=== PATIENT | male | born 1960 | race Caucasian/White ===

== ENCOUNTER 2019-05-28 06:17 | Day surgery (SDC) | payer BC, SELFPAY ==
[2019-05-27 09:29] VITALS: BMI 30.5
[2019-05-28 06:35] VITALS: BP 134/91; PULSE 96; RESP 16; TEMP 36.6; O2SAT 97
[2019-05-28] MEDS: sodium chloride 0.9% 1,000 ML 30 ML (06:38)
--- NOTE | 2019-05-28 06:43 | ANES.PREANE2 ---
Pre-Anesthetic Assessment Pre-Anesthetic Assessment: Height/Weight: Height 1.7 m Weight 88.451 kg Temp Pulse Resp BP Pulse Ox 97.8 F 96 16 134/91 97 05/28/19 06:35 05/28/19 06:35 05/28/19 06:35 05/28/19 06:35 05/28/19 06:35 Preop Diagnosis: Screening colonoscopy Proposed Procedure: Operation Date: 05/28/19 07:00 Proposed Procedures p Colonoscopy 20118 Z12.11(Not Applicable) - Son Myrick MD Social: Social History: Tobacco (quit 30 years ago) and No alcohol Exam: Pre-Anes Outpt Exam: alert, oriented x 3, clear to auscultation bilaterally and regular rate & rhythm Airway: Submandibular: WNL Cervical ROM: WNL MP: 2 Dentition: Other (very poor) History/ROS: No significant history except as noted Pulmonary: Pulmonary: None reported CV/HEM: CV/HEM: HTN : : None reported Hepatic: Hepatic: None reported GI: GI: GERD (occ) Metabolic: Metabolic: None reported Musc/skel: Musc/skel: OA/DJD Neuropsych: Neuropsych: None reported Anesthetic Plan: ASA status: 2 Anesthesia: Anesthesia Evaluation and MAC Risk of > 500 ml blood loss (7ml/kg in children): No PFSH Anesthesia PFSH: Medical History Hypertension Family History Other Cancer Diabetes Hypertension Denies family history of Anesthesia complication Bleeding disorder Social History Smoking and tobacco status: former smoker Alcohol intake: never Data Anesthesia Cardiac Studies: No Data to Display
--- NOTE | 2019-05-28 06:43 | W.PM.OPSUD ---
Surgery/Procedure H&P Update DATE OF PROCEDURE: May 28, 2019 DATE H&P PERFORMED: 05/15/19 H&P UPDATE INFORMATION: I have reviewed H&P completed within last 30 days, I have examined patient prior to procedure and No changes to prior documentation PREOP DIAGNOSIS: Screening colonoscopy PRIMARY INDICATION FOR PROCEDURE: The same PLANNED PROCEDURE: Operation Date: 05/28/19 07:00 Proposed Procedures p Colonoscopy 00510 Z12.11(Not Applicable) - Son Myrick MD
--- NOTE | 2019-05-28 07:28 | SUR.OPER ---
RESOLUTION CLIPS PLACED IN THE ASCENDING COLON POLYP REMOVAL SITES.
--- NOTE | 2019-05-28 07:46 | SUR.OPER ---
RESOLUTION CLIP PLACEMENT AT THE RECTAL POLYP SITE.
[2019-05-28 08:00] VITALS: BP 117/79; PULSE 80; RESP 18; TEMP 36.4; O2SAT 97
[2019-05-28 08:10] VITALS: BP 146/96; PULSE 78; RESP 18; O2SAT 98
== END 2019-05-28 08:35 | disposition home or self-care (01) ==
PROVIDERS: Family Provider Nurse Practitioner; PCP Nurse Practitioner Family; Visit Provider Surgery
PROC: 0DJD8ZZ Inspection of Lower Intestinal Tract, Via Natural or Artificial Opening Endoscopic (ICD-10-PCS; CPT 45378; principal; 2019-05-28 07:00)
DX: Z12.11 Encounter for screening for malignant neoplasm of colon (principal); D12.2 Benign neoplasm of ascending colon; D12.5 Benign neoplasm of sigmoid colon; D12.3 Benign neoplasm of transverse colon; I10 Essential (primary) hypertension; Z87.891 Personal history of nicotine dependence; Z82.49 Family history of ischemic heart disease and other diseases of the circulatory system; Z83.3 Family history of diabetes mellitus; K21.9 Gastro-esophageal reflux disease without esophagitis; M19.90 Unspecified osteoarthritis, unspecified site
CPT/HCPCS: 12345; 45385; 88305; J2001; J2704; J7030